=== PATIENT | female | born 1995 | race African-American/Black ===

== ENCOUNTER 2020-11-18 05:08 | Emergency (ER) | payer OTHER ==
[~2020-11-18] VITALS: Ht 165.1 cm; Wt 65.8 kg
--- NOTE | 2020-11-18 05:22 | NUR ---
ASSUME PT CARE, SELF PRESENTS TO ED C/O DEPRESSION. PT APPEARS ANXIOUS, CRYING. RLE ABRASIONS NOTED.PT STATES SHE USED "EYEBROW SHAPER TO HURT SELF." DENIES SI UPON INITIAL ASSESMENT. PT STATES UTD W/ TETANUS SHOT. AWAITING MD HARDING. 1:1 SITTER AT BEDSIDE.
--- NOTE | 2020-11-18 05:24 | NUR ---
TO ER BED 10,URINE SPECIMEN COLLECTED, SUICIDE PRECAUTION, 1:1 SITTER AT BEDSIDE, AWAITING MD HARDING
--- NOTE | 2020-11-18 05:41 | NUR ---
dr negron at bedside for eval.
--- NOTE | 2020-11-18 05:47 | NUR ---
medical lab tech instructor at bedside for blood draw.
[2020-11-18 05:48] LABS: BILIRUBIN,URINE Negative (NEGATIVE); COLOR,URINE YELLOW (YELLOW); LEUKOCYTE ESTERASE ,URINE Negative (NEGATIVE); NITRITE, URINE Positive (NEGATIVE); PROTEIN,URINE Trace mg/dl (NEGATIVE); UGLUCOSE Negative (NEGATIVE); UROBILINOGEN,URINE 0.2 EU/dL (0.2)
[2020-11-18 05:52] LABS: BASOPHILS % (AUTO) 0.4 % (0.0-2.0); HEMATOCRIT 35 % (33-45); HEMOGLOBIN 11.4 g/dL (11.5-14.8); LYMPHOCYTES # (AUTO) 0.6 /CMM (0.8-4.8); LYMPHOCYTES % (AUTO) 7.6 % (20.0-44.0); MEAN CORPUSCULAR HGB CONC 32 g/dl (31.0-36.0); MEAN CORPUSCULAR VOLUME 89 fL (82-100); MONOCYTES # (AUTO) 0.6 /CMM (0.1-1.30); MONOCYTES % (AUTO) 8.7 % (2.0-12.0); NEUTROPHILS # (AUTO) 6.1 /CMM (1.8-8.9); NEUTROPHILS % (AUTO) 83.3 % (43.0-81.0); PLATELET COUNT (AUTO) 256 /CMM (150-450); RED BLOOD CELL COUNT(AUTO) 3.96 MIL/uL (4.0-5.2); WHITE BLOOD COUNT (AUTO) 7.3 K/uL (4.3-11.0)
[2020-11-18 06:06] LABS: CALCIUM, SERUM 9.3 mg/dL (8.5-10.1); POTASSIUM 3.7 mmol/L (3.5-5.1)
[2020-11-18 06:09] LABS: BACTERIA,URINE Many /HPF (None Seen); RBC,URINE 0-2 /HPF (0-2); SQUAMOUS EPITHELIAL CELL,UR Moderate /HPF (None Seen)
[2020-11-18 06:12] LABS: ALBUMIN 4.1 g/dL (3.4-5.0); BILIRUBIN,DIRECT 0.1 mg/dL (0.0-0.2); BILIRUBIN,TOTAL 0.4 mg/dL (0.2-1.0); TOTAL PROTEIN, SERUM 7.8 g/dL (6.4-8.2)
--- NOTE | 2020-11-18 09:00 | NUR ---
SS Consult: SS Consult requested for Depression. The pt. is a 25-year old Black female who came to [facility] ED seeking medical attention for symptoms of Depression. SW met with pt. bedside. The pt. is alert & oriented x 4 and makes appropriate eye contact. Pt. appears well-groomed. Pt.s mood is depressed with depressed affect. Pt.s speech is WNL. The pt. stated that she is feeling depressed and cut herself on her leg to feel better. Pt. denies SI stating, I do not want to . Patient stated that she said yes when the MD asked about SI because I didnt know what to say. SW explored pt.s mental health Hx. & coping mechanisms. Pt. stated she has never seen psychiatrist or been diagnosed with a mental illness. Pt. states she is not on any psychotropic medication. Pt. states she tends to cope by drinking alcohol every 2 days (wine, whiskey, tequila and smoking weed). SW educated pt. on alternative positive coping mechanisms. SW explored pt.s psychosocial stressors. Pt. stated that her family: Mother & sister live in [place]. Per pt. 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 SW validated pt.s feeling of stress, loneliness, sadness. SW explored pt.s support system. 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 [facility] [address]; [phone]]. Patient began crying during interview. SW offered pt. voluntary psych placement for Tx. Pt. refused stating she wants to go home. Pt. denies SI/HI and denies hallucinations. Safety Plan: SW provided pt. with mental Health resources listed below and pt. accepted them. SW encouraged pt. to seek medical attention at [facility] [address] [address] or any other facility listed if pt. at any time fears for her safety. Patient expressed understanding and verbally agreed to seek medical attention as instructed. Patient gave verbal consent to contact her Therapist, Dr. Ann Santiago [phone]. SW made multiple calls and left voicemail regarding situation. Per pt. she is scheduled to have a session with her therapist today. Per pt. she has left daquan therapist messaged that she is currently in the hospital. Mental Health resources: PSYCHIATRIC OUTPATIENT SERVICES [facility] Partial Hospitalization and Intensive Outpatient Program (Managed Care and [place] Only)[address] [facility] [phone] [facility] Partial Hospitalization and Outpatient [id number] [facility] [address] [place], [place] [phone] [facility] Partial Hospitalization and Outpatient X[address]cn[address]503 [place], [place] [phone] [facility] [address] [id number] [facility] [address] [place] [phone] [facility] Partial Hospitalization and Outpatient Fwafrlk23285 [place], [phone] Crisis and Hotline Telephone Numbers 24-Hour service unless stated [place] Crisis Hotlines: [facility] Mental Health/Crisis Line........[phone] Suicide Prevention Center (24 Hours).......[phone] Suicide Prevention Crisis Center.......[phone] (24 Hours) Assaults Against Women Hotline.........572.350.2441 (24 Hours -- [facility]) Women [facility] Children [facility]...........[phone] (24 Hours) Child Abuse Hotline............[phone] [facility] (24 Hours)..........[phone] Alcoholics Anonymous (24 Hours)..........[phone] Cocaine Anonymous (24 Hours)............[phone] Narcotics Anonymous (24 Hours)..........[phone] [facility] [address] [place] [address] Counseling: [facility] [address] [place] [address] (Specializes in in-depth psychotherapy for emotional distress: anxiety, depression, interpersonal conflicts, life transitions, childhood abuse) [facility] [address] [place] [address] (Assist with solving problem marital difficulties, separation & divorce, aging parents, & grief, chronic & terminal illness) [facility] [address] [place] [address] (Deal with loss & grief, anxiety, marital difficulties) Homebound/Mental Health Services [address] [facility] [place] [address] (Provide in-home mental services to people who are incapable of leaving their homes) [facility] Senior [facility]Resource [facility] [address] [facility] [place] [address] [facility] [address] [place] [address] [facility] [place] [address] [place] [address] Services: Outpatient therapy for children, teens, young adults, adults, older adults, and families; Psychiatric services, medication support Crisis and Hotline Telephone Numbers 24-Hour service unless stated [place] Crisis Hotlines: [place] Mental Health/Crisis Line........427.513.3237 Suicide Prevention Center (24 Hours).......[phone] Suicide Prevention Crisis Center.......[phone] (24 Hours) Alcoholics Anonymous (24 Hours)..........[phone] National Crisis Hotlines: Alcohol and Drug Helpline - Provides referrals to local facilities where adolescents and adults can seek help. Brief intervention. [place] Helpline [facility] [place] [facility] 4-894-673-GLENNA National Youth Crisis Hotline [facility] Provides free information on specific disorders, referral directory to mental health providers, national directory of local mental health associations (M-F, 9-5 EST) National [place] of Mental Health Information Line: Provide sinformation and literature on mental illness by disorder-for professionals and general public.
[2020-11-18 09:04] VITALS: BP 137/75
--- NOTE | 2020-11-18 09:04 | NUR ---
The patient alert and oriented x4. Patient discharged to home in stable condition. Written and verbal after care instructions given. Patient verbalizes understanding of instruction.
== END 2020-11-18 09:05 | disposition home or self-care (01) ==
LOC: ER 05:14
DX: F29 Unspecified psychosis not due to a substance or known physiological condition (principal); F32.9 Major depressive disorder, single episode, unspecified; F10.10 Alcohol abuse, uncomplicated; Y90.0 Blood alcohol level of less than 20 mg/100 ml
CPT/HCPCS: 36415; 80048-TC; 80076-TC; 81001; 85025-TC; 87086-TC; 87186-TC; G0480